=== PATIENT | female | born 1995 ===

== ENCOUNTER 2020-12-19 17:10 | Emergency (ER) | payer SELFPAY ==
[2020-12-19 17:27] VITALS: BP 127/84
[2020-12-19] MEDS ORDERED: SODIUM CHLORIDE 0.9% 1000 ML 1,000 ML IV ONE (17:34)
[2020-12-19] MEDS ORDERED: KETOROLAC 30 MG/1 ML INJ IM ONE (17:34)
--- NOTE | 2020-12-19 17:36 | Event Note ---
ED Screening Note Date of service: 12/19/20 Time: 17:33 ED Screening Note: 25-year-old female presents to the emergency room for 1 week of right flank pain and pressure to the vaginal area. Patient is noted to have a low- grade fever mildly tachycardic. This initial assessment/diagnostic orders/clinical plan/treatment(s) is/are subject to change based on patients health status, clinical progression and re- assessment by fellow clinical providers in the ED. Further treatment and workup at subsequent clinical providers discretion. Patient/guardian urged not to elope from the ED as their condition may be serious if not clinically assessed and managed. Initial orders include:
[2020-12-19 18:29] LABS: Alanine Aminotransferase 11 units/L (7-56); Albumin 3.8 g/dL (3.9-5); BUN/Creatinine Ratio 8; Blood Urea Nitrogen 4 mg/dL (7-17); Calcium 8.5 mg/dL (8.4-10.2); Hemolysis Index 7
[2020-12-19 18:42] LABS: Basophils % (Auto) 0.2 % (0.0-1.8); Eosinophils % (Auto) 0.3 % (0.0-4.3); Hematocrit 42.3 % (30.3-42.9); Hemoglobin 14.4 gm/dl (10.1-14.3); Lymphocytes # (Auto) 0.9 K/mm3 (1.2-5.4); Lymphocytes % (Auto) 6.2 % (13.4-35.0); Mean Corpuscular HGB Conc 34 % (30-34); Mean Corpuscular Volume 93 fl (79-97); Monocytes # (Auto) 1.2 K/mm3 (0.0-0.8); Monocytes % (Auto) 8.3 % (0.0-7.3); Platelet Count 241 K/mm3 (140-440); Red Blood Count 4.55 M/mm3 (3.65-5.03); Red Cell Distribution Width 12.8 % (13.2-15.2)
[2020-12-19 18:51] LABS: Bacteria,Urine 3+ /HPF (Negative); Bilirubin,Urine NEG (Negative); Blood,Urine NEG (Negative); Color,Urine Yellow (Yellow); Mucus,Urine 1+ /HPF; Urobilinogen,Urine < 2.0 mg/dL (<2.0)
[2020-12-19 18:52] LABS: HCG Qualitative,Urine Negative (Negative)
--- NOTE | 2020-12-19 20:01 | Cat Scan Report ---
CT abdomen pelvis wo con, CT chest wo con INDICATION / CLINICAL INFORMATION: Right-sided flank pain. TECHNIQUE: Axial CT imaging of the chest, abdomen and pelvis was obtained without contrast. Coronal and sagittal reformatted imaging obtained and reviewed. All CT scans at this location are performed using CT dos e reduction for ALARA by means of automated exposure control. COMPARISON: None available. FINDINGS: CT chest: Imaging of the thorax demonstrates massive hernia in the anterior mediastinum. 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 There is large amount of intra-abdominal fat as well as large se gment of colon within the lower chest due to this hernia. The stomach remains below the level of the diaphragm. The herniated contents are occupying approximately 30% of the thoracic volume. The lungs are grossly clear. There is some minimal compressive atelectasis within the right lung base due to the hernia. The mediastinum and pulmonary amita are otherwise unremarkable for this noncontrast exam. Thoracic aor ta is unremarkable. Heart size is normal. No pericardial effusion. CT abdomen without contrast demonstrates grossly normal appearance of the liver, spleen, pancreas, le ft kidney, and adrenal glands. Gallbladder is moderately distended but without pericholecystic inflam matory change. The right kidney and right perinephric space is abnormal. There is mild right hydronephrosis, althoug h no obstructing calculus is seen in the right ureter or within the urinary bladder. There is signifi cant inflammatory change in the right perinephric space, especially tracking down the inferior right perinephric space. The source of these findings are unclear. The patient may have had recent obstruct ing calculus that has artery been passed and therefore not visualized. CT pelvis without contrast does not demonstrate any additional findings. As noted above, a large segm ent of the colon is noted within the thorax due to the presence of hernia. The majority of the transv erse colon and a portion of the hepatic flexure is noted within the hernia. I believe a normal append ix is present adjacent to the cecum. No acute significant osseous abnormality noted. IMPRESSION: 1. The right kidney and right perinephric space or abnormal. There is mild right hydronephrosis with prominent inflammatory change in the right perinephric space, especially inferiorly. No obstructing c alculus is present at this time. It is certainly possible that the patient had an obstructing calculu s which has since been passed and is no longer visible. This will need to be followed to ensure pain and symptoms resolve or further evaluation with urology consult may be required. 2. 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 Herniated contents c ontain large segment of colon as well as significant intra-abdominal fat. Hernia contents are occupyi ng approximately 30% of the intra-thoracic volume. 3. Moderate distention of the gallbladder without associated pericholecystic inflammatory change. Signer Name: Kassandra Hunter MD Signed: 12/19/2020 7:57 PM Workstation Name: [id number]
[2020-12-19] MEDS ORDERED: KETOROLAC 30 MG/1 ML INJ ONE (20:59)
[2020-12-19] MEDS ORDERED: SODIUM CHLORIDE 0.9% 1000 ML 1,000 ML ONE (20:59)
== END 2020-12-19 21:12 | disposition left against medical advice (07) ==
LOC: ED 17:10
DX: M54.5 Low back pain (principal); Z53.21 Procedure and treatment not carried out due to patient leaving prior to being seen by health care provider
CPT/HCPCS: 36415; 71250; 74176; 80053; 81001; 81025; 85025; J7030; J1885